=== PATIENT | female | born 1965 | race Caucasian/White ===

== ENCOUNTER 2019-02-24 11:09 | Emergency (ER) | payer BC, OTHER ==
[~2019-02-24] VITALS: Ht 170.1 cm; Wt 124.0 kg
[2019-02-24 12:21] LABS: HEMOGLOBIN 14.7 G/DL (11.5-16.0); WHITE BLOOD COUNT 7.6 10^3/uL (4.3-11.0)
[2019-02-24 12:22] LABS: MEAN PLATELET VOLUME 10.1 FL (7.4-10.4); RED CELL DISTRIBUTION WIDTH 14.2 % (10.0-14.5)
[2019-02-24 12:33] LABS: CARBON DIOXIDE 25 MMOL/L (21-32); CHLORIDE 98 MMOL/L (98-107); POTASSIUM 4.1 MMOL/L (3.6-5.0); SODIUM 138 MMOL/L (135-145)
[2019-02-24 12:34] LABS: ALANINE AMINOTRANSFERASE 8 U/L (0-55); ALBUMIN 4.3 GM/DL (3.2-4.5); ALKALINE PHOSPHATASE 101 U/L (40-136); BILIRUBIN,TOTAL 0.3 MG/DL (0.1-1.0); BUN/CREATININE RATIO 13; CALCIUM 9.6 MG/DL (8.5-10.1); CREATININE SERUM 0.77 MG/DL (0.60-1.30); GFR ESTIMATED > 60; GLUCOSE 109 MG/DL (70-105); TOTAL PROTEIN 7.8 GM/DL (6.4-8.2)
--- NOTE | 2019-02-24 12:39 | Diagnostic Imaging Report ---
INDICATION: Chest pain, lightheadedness. COMPARISON: None available. TECHNIQUE: Single frontal radiograph of the chest dated February 24, 2019. FINDINGS: The cardiac silhouette is within normal limits in size. No significant pulmonary vascular congestion. 0.8 cm nodular density overlying the right midlung. Otherwise, the lungs are clear. No pleural effusion. No pneumothorax. No acute osseous abnormality. IMPRESSION: No acute cardiopulmonary abnormality. 0.8 cm nodular density overlying the right midlung. Although this may simply relate to superposition of shadows, pulmonary nodule is not excluded. Comparison to prior radiographs is recommended. If no prior radiographs are available to demonstrate greater than 2 years of stability for this pulmonary nodule, then dedicated frontal and lateral radiographs of the chest would be recommended. Dictated by: Dictated on workstation # [id number]
[2019-02-24 14:12] LABS: CLARITY,URINE CLEAR; COLOR,URINE YELLOW; GLUCOSE, URINE (UA) NEGATIVE (NEGATIVE); KETONES,URINE NEGATIVE (NEGATIVE); PH,URINE 6.5 (5-9); PROTEIN,URINE NEGATIVE (NEGATIVE)
[2019-02-24 14:13] LABS: BILIRUBIN,URINE NEGATIVE (NEGATIVE); LEUKOCYTE ESTERASE ,URINE NEGATIVE (NEGATIVE); NITRITE,URINE NEGATIVE (NEGATIVE); SQUAMOUS EPITHELIAL CELL,UR RARE /HPF; UROBILINOGEN,URINE 0.2 MG/DL (NORMAL)
--- NOTE | 2019-02-24 16:24 | ED Chest Pain ---
General Chief Complaint: Chest Pain Stated Complaint: CHEST PAIN & LIGHTHEADED Exam Limitations: no limitations History of Present Illness Date Seen by Provider: Feb 24, 2019 Time Seen by Provider: 11:30 Initial Comments Patient is a 53-year-old female presents from work with left-sided scapular pain started while sitting. Pain is described as intense, aching lasting less than 30 seconds. Following which, patient reports feeling generally weak, malaise with nausea take. Denies chest pain shortness of breath, vomiting, arm or paresthesias. No abdominal pain. No other acute symptoms or complaints. Denies history of CAD. Cardiac neck risk factors include dyslipidemia and hypertension. Patient is a nonsmoker. Timing/Duration: 1/2 hour Severity/Quality: moderate Location: shoulder Radiation: no radiation Modifying Factors: improves with antacids Associated Symptoms: back pain, nausea/vomiting Allergies and Home Medications Patient Home Medication List Home Medication List Reviewed: Yes Review of Systems Review of Systems Constitutional: see HPI EENTM: See HPI Respiratory: See HPI Cardiovascular: See HPI Gastrointestinal: See HPI Genitourinary: See HPI Musculoskeletal: see HPI Skin: see HPI Psychiatric/Neurological: See HPI Endocrine: See HPI Past Cmhrvqa-Agndyk-Vfvvir Hx Past Med/Social Hx: Reviewed Nursing Past Med/Soc Hx Patient Social History Alcohol Use: Occasionally Uses Recreational Drug Use: No Smoking Status: Never a Smoker Recent Hopitalizations: No Physical Abuse: No Sexual Abuse: No Mistreated: No Fear: No Immunizations Up To Date Date of Influenza Vaccine: Mar 18, 2018 Seasonal Allergies Seasonal Allergies: No Past Medical History Surgeries: No Respiratory: No Cardiac: Yes Hypertension Neurological: No (concussion 3 yrs ago) Genitourinary: No Gastrointestinal: Yes Gastroesophageal Reflux Musculoskeletal: No Endocrine: No HEENT: No Cancer: No Psychosocial: Yes Anxiety, Depression Integumentary: No Blood Disorders: No Physical Exam Vital Signs Vital Signs - First Documented 02/24/19 11:11 O2 Delivery Room Air Capillary Refill : Less Than 3 Seconds Height, Weight, BMI Height: '" Weight: lbs. oz. kg; BMI Method: General Appearance: No Apparent Distress, WD/WN Focused Exam Sepsis Stage: Ruled Out Progress/Results/Core Measures Results/Orders Lab Results Laboratory Tests Test 02/24/19 11:14 02/24/19 13:12 02/24/19 14:55 Range/Units White Blood Count 7.6 4.3-11.0 10^3/uL Red Blood Count 5.26 4.35-5.85 10^6/uL Hemoglobin 14.7 11.5-16.0 G/DL Hematocrit 45 35-52 % Mean Corpuscular Volume 86 80-99 FL Mean Corpuscular Hemoglobin 28 25-34 PG Mean Corpuscular Hemoglobin Concent 33 32-36 G/DL Red Cell Distribution Width 14.2 10.0-14.5 % Platelet Count 360 130-400 10^3/uL Mean Platelet Volume 10.1 7.4-10.4 FL D-Dimer 0.41 0.00-0.49 UG/ML Sodium Level 138 135-145 MMOL/L Potassium Level 4.1 3.6-5.0 MMOL/L Chloride Level 98 98-107 MMOL/L Carbon Dioxide Level 25 21-32 MMOL/L Anion Gap 15 H 5-14 MMOL/L Blood Urea Nitrogen 10 7-18 MG/DL Creatinine 0.77 0.60-1.30 MG/DL Estimat Glomerular Filtration Rate > 60 BUN/Creatinine Ratio 13 Glucose Level 109 H 70-105 MG/DL Calcium Level 9.6 8.5-10.1 MG/DL Corrected Calcium 9.4 8.5-10.1 MG/DL Total Bilirubin 0.3 0.1-1.0 MG/DL Aspartate Amino Transf (AST/SGOT) 16 5-34 U/L Alanine Aminotransferase (ALT/SGPT) 8 0-55 U/L Alkaline Phosphatase 101 40-136 U/L Troponin I < 0.30 < 0.30 <0.30 NG/ML Total Protein 7.8 6.4-8.2 GM/DL Albumin 4.3 3.2-4.5 GM/DL Urine Color YELLOW Urine Clarity CLEAR Urine pH 6.5 5-9 Urine Specific [place] <1.005 1.016-1.022 Urine Protein NEGATIVE NEGATIVE Urine Glucose (UA) NEGATIVE NEGATIVE Urine Ketones NEGATIVE NEGATIVE Urine Nitrite NEGATIVE NEGATIVE Urine Bilirubin NEGATIVE NEGATIVE Urine Urobilinogen 0.2 NORMAL MG/DL Urine Leukocyte Esterase NEGATIVE NEGATIVE Urine RBC (Auto) NEGATIVE NEGATIVE Urine RBC NONE /HPF Urine WBC NONE /HPF Urine Squamous Epithelial Cells RARE /HPF Urine Renal Epithelial Cells /HPF Urine Crystals NONE /LPF Urine Bacteria NONE /HPF Urine Casts NONE /LPF Urine Mucus NEGATIVE /LPF Urine Culture Indicated NO My Orders Orders - AMBIKA ALFORD DO Cbc No Diff (02/24/19 12:11) Comprehensive Metabolic Panel (02/24/19 12:11) Troponin I (02/24/19 12:11) Ekg Tracing (02/24/19 12:11) Chest 1 View Ap/Pa Only (02/24/19 12:11) Troponin I (02/24/19 13:54) Fibrin Degradation Products (02/24/19 13:54) Ua Culture If Indicated (02/24/19 13:54) Vital Signs/I&O 02/24/19 11:11 O2 Delivery Room Air Departure Communication (Admissions) EKG, lab and imaging studies reviewed. No recurrence of chest pain or back pain while in the emergency department. No diagnosis made. Recommend watchful waiting, supportive care with close PCP follow-up. Return precautions reviewed. Impression Primary Impression: Chest pain Disposition: HOME, SELF-CARE Condition: Improved Departure-Patient Inst. Referrals: YESSY MARTINEZ MD (PCP) Primary Care Physician Patient Instructions: Chest Pain (DC) Add. Discharge Instructions: You were evaluated in the emergency department for left shoulder pain and weakness. EKG lab and imaging studies were performed and are nondiagnostic. Cause of your symptoms has not been determined. Please go home and rest, increase fluids and follow-up with your PCP in 3-4 days for reevaluation. Return to ED if new or worsening symptoms. All discharge instructions reviewed with patient and/or family. Voiced understanding. AMBIKA ALFORD DO Feb 24, 2019 16:24
[2019-02-24 16:34] VITALS: BP 156/60
== END 2019-02-24 16:34 | disposition home or self-care (01) ==
LOC: ER FS 11:11
DX: R07.9 Chest pain, unspecified (principal); I10 Essential (primary) hypertension; K21.9 Gastro-esophageal reflux disease without esophagitis; F41.9 Anxiety disorder, unspecified; F32.9 Major depressive disorder, single episode, unspecified
CPT/HCPCS: 36415; 71045; 80053; 81000; 84484; 85027; 85379; 93005

== ENCOUNTER 2021-04-18 05:31 | Outpatient (CLI) | payer BC ==
[~2021-04-18] VITALS: Ht 170.2 cm; Wt 124.1 kg
[2021-04-19] MEDS ORDERED: LISI2.5T13 PO (08:38)
[2021-04-19] MEDS ORDERED: DULO60CA59 PO (08:38)
[2021-04-19] MEDS ORDERED: OMEP20TA33 PO (08:38)
== END 2021-04-19 08:41 | disposition home or self-care (01) ==
LOC: PREOP 05:31
PROVIDERS: ATTEND Podiatrist Foot & Ankle Surgery
DX: Z01.818 Encounter for other preprocedural examination (principal)

== ENCOUNTER → 2021-04-22 | Outpatient (CLI) | payer BC ==
[~2021-04-22] MED LIST: ACHD5005 PO; CEPH500C PO; DULO60CA59 PO; LISI2.5T13 PO; OMEP20TA33 PO
== END ==
LOC: LAB FS 09:59
PROVIDERS: ATTEND Podiatrist Foot & Ankle Surgery
DX: Z01.812 Encounter for preprocedural laboratory examination (principal); M20.41 Other hammer toe(s) (acquired), right foot; M89.371 Hypertrophy of bone, right ankle and foot; Z20.822 Contact with and (suspected) exposure to COVID-19
CPT/HCPCS: 87635

== ENCOUNTER 2021-04-25 06:07 | Day surgery (SDC) | payer BC ==
[2021-04-25] VITALS (10 sets, daily range): BP systolic 127–160; BP diastolic 66–92
[~2021-04-25] VITALS: Ht 170 cm; Wt 124.1 kg
[~2021-04-25 06:07] MED LIST changes: -ACHD5005 PO; -CEPH500C PO
[2021-04-25] MEDS ORDERED: ceFAZolin INJECTION 1,000 MG in WATER (STERILE) FOR INJECTION 10 ML IV ONE (07:00)
[2021-04-25] MEDS ORDERED: LACTATED RINGERS 1,000 ML IV PRN (07:00)
[2021-04-25] MEDS ORDERED: LIDOCAINE 1% INJ 20 ML 20 ML VIAL ONE (07:15)
[2021-04-25] MEDS ORDERED: BUPIVACAINE 0.5% 30 ML (SENSORCAINE) VIAL ONE (07:15)
[2021-04-25] MEDS ORDERED: SEVOFLURANE (ULTANE) 15 ML INHAL SOLN ONE ×3 (07:35→10:15)
[2021-04-25] MEDS ORDERED: LIDOCAINE PF 2% 5 ML (XYLOCAINE) VIAL ONE (07:35)
[2021-04-25] MEDS ORDERED: fentaNYL INJ 100 MCG/2 ML AMP ONE (07:35)
[2021-04-25] MEDS ORDERED: proPOfol 200 MG/20 ML (DIPRIVAN) VIAL IV ONE (07:35)
[2021-04-25] MEDS ORDERED: ONDANSETRON 4 MG/2 ML (SDV) Z0FRAN ONE (07:35)
[2021-04-25] MEDS ORDERED: MIDAZOLAM 2 MG/2 ML (VERSED) VIAL ONE (07:36)
--- NOTE | 2021-04-25 07:40 | Progress Note-Pre Operative ---
Pre-Operative Progress Note H&P Reviewed The H&P was reviewed, patient examined and no changes noted. Date Seen by Provider: Apr 25, 2021 Time Seen by Provider: 07:40 Date H&P Reviewed: Apr 25, 2021 Time H&P Reviewed: 07:40 Pre-Operative Diagnosis: Hypertrophic 2nd metatarsal, Hammertoes 2,3,4,5 right foot PHILLIP UNGER DPM Apr 25, 2021 07:40
--- NOTE | 2021-04-25 09:59 | Progress Note-Post Operative ---
Post-Operative Progess Note Surgeon (s)/Stained Glass Artist (s) Surgeon PHILLIP UNGER DPM Stained Glass Artist: none Pre-Operative Diagnosis Hypertrophic 2nd metatarsal, Hammertoes 2,3,4,5 right foot Post-Operative Diagnosis same Procedure & Operative Findings Date of Procedure 04/25/21 Procedure Performed/Findings 2nd metatarsal osteotomy, reduction of hammertoes 2, 4, 5, flexor tendon release 3rd, right foot Anesthesia Type general Estimated Blood Loss Estimated blood loss (mL): minimal Specimens/Packing Specimens Removed none PHILLIP UNGER DPM Apr 25, 2021 09:59
[2021-04-25] MEDS ORDERED: HYDROcodone/APAP 5 MG/325 MG (LORTAB) TAB PO PRN (10:00)
[2021-04-25] MEDS ORDERED: LACTATED RINGERS 1,000 ML IV SCH (10:00)
[2021-04-25] MEDS ORDERED: CEPH500C PO (10:01)
[2021-04-25] MEDS ORDERED: ACHD5005 PO (10:01)
[2021-04-25] MEDS ORDERED: KETOROLAC 30 MG/ML VIAL ONE (10:12)
[2021-04-25] MEDS ORDERED: fentaNYL INJ 100 MCG/2 ML AMP IVP ONE (10:45)
--- NOTE | 2021-04-25 10:53 | Anesthesia-General Post-Op ---
General Patient Condition Mental Status/LOC: Same as Preop Cardiovascular: Satisfactory Nausea/Vomiting: Absent Respiratory: Satisfactory Pain: Controlled Complications: Absent Post Op Complications Complications None Follow Up Care/Instructions Patient Instructions None needed. Anesthesia/Patient Condition Patient Condition Patient is doing well, no complaints, stable vital signs, no apparent adverse anesthesia problems. No complications reported per nursing. NYASIA SIMONS CRNA Apr 25, 2021 10:53
--- NOTE | 2021-04-25 11:28 | Diagnostic Imaging Report ---
INDICATION: POST OP. TECHNIQUE: Two views of the right foot. CORRELATION STUDY: None. FINDINGS: Surgical changes of the 2nd through 5th toes with osteotomy changes. Additional screw over the distal 2nd metatarsal. External fixation pins through the 2nd, 3rd, and 4th phalanges are present. Visualized alignment appears to be near-anatomic. Soft tissue swelling is present. IMPRESSION: Surgical changes of the 2nd through 5th phalanges with external fixation pins of the 2nd through 4th digits. Dictated by: Dictated on workstation # [id number]
--- NOTE | 2021-04-25 12:46 | OPERATIVE REPORT ---
DATE OF SERVICE: 04/25/2021 SURGEON: Martha Unger DPM. PREOPERATIVE DIAGNOSES: 1. Hypertrophic second metatarsal head, right foot. 2. Hammer digit syndrome second, third, fourth and fifth digits, right foot. POSTOPERATIVE DIAGNOSES: 1. Hypertrophic second metatarsal head, right foot. 2. Hammer digit syndrome second, third, fourth and fifth digits, right foot. PROCEDURES: 1. Second metatarsal osteotomy, right foot. 2. Arthrodesis to the right second and fourth digits. 3. Arthroplasty, right fifth toe. 4. Flexor tendon release, right third digit. WOUND CLASS: Clean. ANESTHESIA: General. HEMOSTASIS: Pneumatic thigh tourniquet at 300 mmHg. INDICATIONS: This 55-year-old female presents complaining of painful hammertoes, right foot. Conservative therapy is met with unsatisfactory results and the patient is agreeable to surgical intervention after risks and complications were discussed at length. No guarantees were explained to the patient and she is willing to proceed. DESCRIPTION OF PROCEDURE: The patient was brought back to the operating table, placed in secure supine position. A general anesthetic was then induced. Appropriate timeout was performed. Pneumatic thigh tourniquet was placed on the right lower extremity over several layers of padding. The right foot was anesthetized utilizing 10 mL of 1:1 mixture of 1% Xylocaine, 0.5% Marcaine injected in a local infusion to the second, third, fourth and fifth rays and toes. The right foot was prepped and draped in normal sterile manner. The right foot was then elevated, allowed to exsanguinate after which the tourniquet was inflated to 300 mmHg. Attention was then directed to the dorsal aspect of the right second ray where a 4 cm longitudinal linear incision was created starting at the surgical neck of the second metatarsal extending to the distal interphalangeal joint. The incision was deepened in the same plane with great care to identify and retract all vital neurovascular structures. Only necessary blood vessels were cauterized as encountered. The incision was deepened down to the extensor tendon where a Z-slide lengthening was performed. The extensor tendon was reflected, and the extensor hung released to the metatarsophalangeal joint. A dorsal capsulorrhaphy was performed as well as a release to the medial collateral ligament. This allowed the digit to come down in more rectus alignment. Attention was then directed to the head of the second metatarsal where a Bonnie type osteotomy was performed. The capital fragment was translocated proximally and a slightly medial orientation and was fixated in its new position utilizing a 2.0 snap-off screw of 12 mm length. Excellent bony apposition and fixation was appreciated. Utilizing a rongeur, the excess portion of the dorsal second metatarsal head was reduced, followed by a power bur. Attention was then directed to the proximal interphalangeal joint of the right second toe where the collateral ligaments were released. The head was shaped into a peg utilizing a power sagittal saw and power bur, a hole was created to the middle phalanx at the base with a power bur for the peg-in-hole type arthrodesis. This was fixated in its corrected position utilizing a 0.054 K-wire. The K-wire was sticking out of the end of the toe was cut and a protective ball placed over the end of the wire. Attention was then directed to the plantar aspect of the flexible contracture of the right third toe. An #11 blade was utilized to create a stab incision to the plantar aspect of the proximal interphalangeal joint of the right third toe where the flexor tendon was palpated and released. This allowed for more rectus alignment of the digit. A 0.054 smooth K-wire was driven down the end of the toe through the distal middle and proximal phalanx to hold the digit in rectus alignment. The excess K-wire was cut, and a protective ball placed over the end of the wire. The attention was then directed to the right fourth toe where an adductor varus contracture was noted. A stab incision was created at the inferior aspect of the proximal interphalangeal joint and the flexor tendon was released. Next, two semielliptical incisions were created at the distal medial to proximal lateral orientation. The circumscribed skin was removed in toto. The incision was deepened down to the extensor tendon where a transverse tenotomy was performed overlying the proximal interphalangeal joint. The medial collateral ligaments were released. Next, the hypertrophic head of the proximal phalanx was resected utilizing a power sagittal saw and power bur was utilized to resect the articular cartilage of the middle phalanx for an end-to-end arthrodesis. The wound was flushed with copious amounts of sterile normal saline as was the second and third digits incisions. K-wire was then driven down the right fourth digit holding the arthrodesis in rectus alignment and a protective ball was placed over the end of the wire. Attention was then directed to the right fifth toe where digit was dorsally and medially oriented and overlapping the fourth digit. A V-Y skin plasty was performed to the proximal medial aspect of the proximal phalanx metatarsal area. The incision was extended dorsally linearly overlying the proximal interphalangeal joint. The incision was deepened down to the extensor tendons where a Z slide lengthening was performed. The medial and lateral collateral ligaments of the proximal interphalangeal joint were identified and released. The hypertrophic head of the proximal phalanx was identified and resected utilizing a power sagittal saw. The metatarsophalangeal joint was identified and a dorsal capsulorrhaphy was performed. This allowed the proximal phalanx to come down into a more rectus alignment. The wound was flushed with copious amounts of normal saline. The extensor tendon was approximated and the extended length and position with a 4-0 Vicryl, deep closure and extensor tendon repair was performed to the second and fourth ray with a 3-0 Vicryl. Superficial closure was performed to the subcutaneous tissue with 4-0 Vicryl to the dorsal incisions of the second, fourth and fifth rays. Skin closure was performed with 4-0 Prolene in a horizontal mattress type stitch to the dorsal incisions as well with occasional single interrupted type stitch for the V-Y plasty of the right fifth digit. The tourniquet was released noting appropriate cap refill time to all digits of the right foot. Postoperative injection consisted of 10 mL of 0.5% Marcaine injected in a local infusion to the surgical site. Postoperative dressing consisted of Betadine soaked Adaptic, sterile 4 x 4, sterile Kerlix all secured with a Coban wrap. The patient tolerated the anesthesia and procedure well, was transported from the operating room to the recovery room with vital signs stable and vascular status intact to all digits of the right foot. She is to follow up in my office in 10 days' period of time or sooner if necessary. She is to keep the dressing dry, clean and intact. She was given a prescription for Keflex as well as Vicodin. She is to be partial weightbearing with heel contact only on the right lower extremity with crutches or a walker. Job ID: [id number] DocumentID: [id number] Dictated Date: 04/25/2021 10:15:41 Technology Support Analyst Date: 04/25/2021 12:44:47 Dictated By: MARTHA UNGER DPM
--- NOTE | 2021-04-25 13:23 | Physical Therapy Ortho Eval ---
PT Orthopedic Evaluation Type of Surgery Prior Level of Function Current Living Status: Spouse Locomotion (Upon Admit): Independent Established Durable Medical Eq: Front Wheeled Walker, Crutches Subjective Subjective Patient reports 3/10 pain currently in right foot/toes. Entry Into Home: Stairs Without Railing Steps Into Home: 2 Steps Accessories: No Railing Motor Control Motor Control: Motor Control WNL ROM ROM: WFL, except focal deficit Strength Strength: WFL Transfer SCALE: Activities may be completed with or without assistive devices. 0-Mbpiuttyvh-pnzgpic completes the activity by him/herself with no assistance from a helper. 5-Set-up or Clean-up Assistance-helper sets up or cleans up; patient completes activity. [place] assists only prior to or following the activity. 4-Supervision or Touching Assistance-helper provides verbal cues and/or touching/steadying and/or contact guard assistance as patient completes activity. Assistance may be provided throughout the activity or intermittently. 3-Partial/Moderate Assistance-helper does LESS THAN HALF the effort. Keene lifts, holds or supports trunk or limbs, but provides less than half the effort. 2-Substantial/Maximal Assistance-helper does MORE THAN HALF the effort. Keene lifts or holds trunk or limbs and provides more than half the effort. 8-Bixdrekpe-cjdgpn does ALL the effort. Patient does none of the effort to complete the activity. Or, the assistance of 2 or more helpers is required for the patient to complete the activity. If activity was not attempted, code reason: 7-Patient Refused. 9-Not Applicable-not attempted and the patient did not perform the activity before the current illness, exacerbation or injury. 10-Not Attempted due to Environmental Limitations-(lack of equipment, weather restraints, etc.). 88-Not Attempted due to Medical Conditions or Safety Concerns. Transfers (B, C, W/C) (QC): 5 Gait Right Lower Extremity: Right Weight Bearing Status RLE: Partial Weight Bearing Left Lower Extremity: Left Weight Bearing Status LLE: Full Weight Bearing Distance (QC): 4=463-54 ft Distance: 100 Assessment/Goals Goal Time Frame: 1 Visit Plan Treatment Plan: Discharge, Education Time Time In: 1126 Time Out: 1146 Total Billed Treatment Time: 20 Billed Treatment Time Visit, YESSY [place] PT Apr 25, 2021 13:23
== END 2021-04-25 12:00 ==
LOC: SDC 06:07
PROVIDERS: ATTEND Podiatrist Foot & Ankle Surgery
DX: M89.371 Hypertrophy of bone, right ankle and foot (principal); M20.41 Other hammer toe(s) (acquired), right foot; I10 Essential (primary) hypertension; K21.9 Gastro-esophageal reflux disease without esophagitis; F41.9 Anxiety disorder, unspecified; F32.A Depression, unspecified; Z79.899 Other long term (current) drug therapy; Z80.9 Family history of malignant neoplasm, unspecified
CPT/HCPCS: 28232; 28285 ×3; 28308; 73620; 87081; 97161; C1713

== ENCOUNTER 2021-09-13 22:20 | Emergency (ER) | payer BC ==
[~2021-09-13] VITALS: Ht 170.1 cm; Wt 125.5 kg
[~2021-09-13 22:20] MED LIST changes: +ACHD5005 PO; +CEPH500C PO
[2021-09-13] MEDS ORDERED: PROCHLORPERAZINE 10 MG/2ML INJ (COMPAZINE) IV STA (22:37)
[2021-09-13] MEDS ORDERED: diphenhydrAMINE 50 MG/ML INJ (BENADRYL) IVP STA (22:37)
[2021-09-13] MEDS ORDERED: KETOROLAC 30 MG/ML VIAL IVP STA (22:37)
[2021-09-13] MEDS ORDERED: NS IV 1000 ML 1,000 ML IV STA (22:37)
[2021-09-13] MEDS ORDERED: hydrALAZINE (APESOLINE) 20 MG/ML VIAL IV STA (22:41)
--- NOTE | 2021-09-13 22:41 | ED Headache ---
General Chief Complaint: Head/Cervical Problems Stated Complaint: HEADACHE Nursing Triage Note: Patient states that she has had a headache for the last 8 days. Patient reports having a history of migraines but this one isn't where she typically has them. She also reports that she has never had one last this long or be this severe. Patient states the headache starts on the right side of the base of her neck and radiates to her right ear. She describes the pain changing in intensity at intermittent times and different places. Patient took 2 Excedrin Migraines at 17:00, 1 Simuptriptan at 19:00 and 1 hydrocodone at approximately 2130. Patient report very little relief. Patient does have a history of HTN. Source: patient History of Present Illness Date Seen by Provider: Sep 13, 2021 Time Seen by Provider: 22:21 Initial Comments 56-year-old female presenting with complaints of right-sided headache and neck pain for 8 days. She states that she does have a history of migraine headaches ever since she had a concussion several years ago. However typically her migraine headaches are on the left side of her head and this headache is on the right side. She denies any new or recent head trauma. She does have a history of high blood pressure and takes lisinopril for that. Her blood pressure was elevated today and she was directed by the nurse at Dr. Martinez's office to take an extra dose of her lisinopril. She only takes 2.5 mg so he had her increase to 5 mg of lisinopril. She states her headache has been getting worse over the last 8 days. Initially she could manage it with ibuprofen but that has gotten to the point that ibuprofen, Excedrin Migraine, Imitrex and hydrocodone have still not controlled her headache. She has light sensitivity that makes the headache worse. She has had nausea but no vomiting. She has not actually physically gone to see Dr. Martinez about headache and symptoms. Severity/Quality: severe Location: other (right side of head and neck) Prior Headaches/Recent Trauma: chronic headaches (but usually those are on the left side of her head) Modifying Factors: worse with exposure to light Associated Symptoms: No confusion, No fatigue, No facial pain, No fever/chills, No flushing, No loss of consciousness; nausea/vomiting (nausea when pain is severe but no emesis); No nasal congestion, No nasal drainage, No numbness in legs/feet, No rash, No seizures, No sinus infection, No stiff neck, No vision changes, No weakness Allergies and Home Medications Allergies Coded Allergies: quetiapine (Verified Allergy, Unknown, Rash, 04/25/21) Patient Home Medication List Home Medication List Reviewed: Yes Cephalexin (Cephalexin) 500 Mg Capsule, 1 CAP PO TID Prescribed by: PHILLIP UNGER on 04/25/21 1001 Duloxetine HCl (Duloxetine HCl) Unknown Strength Capsule., 1 TAB PO BID, (Reported) Entered as Reported by: MAE VENTURA on 04/19/21 0838 Hydrocodone/Acetaminophen (Hydrocodone-Acetamin 5-325 mg) 1 Each Tablet, 1 TAB PO Q4H PRN for PAIN-MODERATE (5-7) Prescribed by: PHILLIP UNGER on 04/25/21 1003 Lisinopril (Lisinopril) 2.5 Mg Tablet, 2.5 MG PO DAILY, (Reported) Entered as Reported by: MAE VENTURA on 04/19/21 0838 Omeprazole Magnesium (Prilosec Otc) 20 Mg Tablet.dr, 20 MG PO DAILY, (Reported) Entered as Reported by: MAE VENTURA on 04/19/21 0838 Review of Systems Review of Systems Constitutional: No chills, No diaphoresis, No fever Eyes: Denies Blindness, Denies Blurred Vision, Denies Drainage; Photophobia; Denies Vision Changes Ears, Nose, Mouth, Throat: see HPI (pain behind right ear with tenderness over mastoid); denies ear pain, denies ear discharge, denies nose pain, denies nose discharge, denies epistaxis Respiratory: no symptoms reported Cardiovascular: no symptoms reported Gastrointestinal: see HPI Genitourinary: No dysuria, No frequency Musculoskeletal: No joint swelling; neck pain (right sided neck pain and pain over right mastoid) Skin: No rash Psychiatric/Neurological: See HPI, Anxiety, Headache; Denies Numbness, Denies Paresthesia, Denies Seizure, Denies Tingling, Denies Weakness Past Uhtsgza-Xsjmgf-Gyshqq Hx Patient Social History Tobacco Use?: No Substance use?: No Alcohol Use?: No Pt feels they are or have been: No Immunizations Up To Date First/Initial COVID19 Vaccinat: august 2020 Second COVID19 Vaccination [place]: september 2020 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 Seasonal Allergies Seasonal Allergies: No Past Medical History Surgery/Hospitalization HX: HTN, Depression, Concussion hx with chronic Migraines, Anxiety, Obesity Surgeries: No Respiratory: No Cardiac: Yes Hypertension Neurological: No Genitourinary: No Gastrointestinal: Yes Gastroesophageal Reflux Musculoskeletal: No (wilfredo ) Endocrine: No HEENT: No Cancer: No Psychosocial: Yes Anxiety, Depression Integumentary: No Blood Disorders: No Physical Exam Vital Signs Vital Signs - First Documented 09/13/21 22:23 Temp 36.5 Pulse 84 Resp 18 B/P (MAP) 190/88 (122) Pulse Ox 94 O2 Delivery Room Air Capillary Refill : Less Than 3 Seconds Height, Weight, BMI Height: '" Weight: lbs. oz. kg; 43.00 BMI Method: General Appearance: mild distress, obese HEENT: PERRL/EOMI, TMs normal, pharynx normal, photophobia, other (Negative bustillo sign, negative raccoon sign, negative CSF otorrhea or rhinorrhea. She has tenderness to palpation over the right mastoid.) Neck: full range of motion, supple, tender lateral (Right side of neck up to the mastoid and scalp area is tender to palpation) Cardiovascular: normal peripheral pulses, regular rate, rhythm Respiratory: chest non-tender, lungs clear, normal breath sounds, no respiratory distress, no accessory muscle use Gastrointestinal: normal bowel sounds, non tender, soft, no pulsatile mass Back: no CVA tenderness Extremities: normal range of motion, non-tender, no calf tenderness, normal capillary refill Psychiatric: alert, oriented x 3 Crainal Nerves: normal hearing, normal speech, PERRL Coordination/Gait: normal gait Motor/Sensory: no motor deficit, no sensory deficit Skin: normal color, warm/dry Progress/Results/Core Measures Results/Orders Lab Results Laboratory Tests Test 09/13/21 22:38 09/13/21 22:50 Range/Units White Blood Count 7.7 4.3-11.0 10^3/uL Red Blood Count 4.96 3.80-5.11 10^6/uL Hemoglobin 13.9 11.5-16.0 g/dL Hematocrit 41 35-52 % Mean Corpuscular Volume 83 80-99 fL Mean Corpuscular Hemoglobin 28 25-34 pg Mean Corpuscular Hemoglobin Concent 34 32-36 g/dL Red Cell Distribution Width 13.9 10.0-14.5 % Platelet Count 365 130-400 10^3/uL Mean Platelet Volume 9.5 9.0-12.2 fL Immature Granulocyte % (Auto) 0 % Neutrophils (%) (Auto) 59 42-75 % Lymphocytes (%) (Auto) 31 12-44 % Monocytes (%) (Auto) 6 0-12 % Eosinophils (%) (Auto) 3 0-10 % Basophils (%) (Auto) 1 0-10 % Neutrophils # (Auto) 4.5 1.8-7.8 10^3/uL Lymphocytes # (Auto) 2.4 1.0-4.0 10^3/uL Monocytes # (Auto) 0.5 0.0-1.0 10^3/uL Eosinophils # (Auto) 0.2 0.0-0.3 10^3/uL Basophils # (Auto) 0.0 0.0-0.1 10^3/uL Immature Granulocyte # (Auto) 0.0 0.0-0.1 10^3/uL Prothrombin Time 12.3 12.2-14.7 SEC INR Comment 0.9 0.8-1.4 Activated Partial Thromboplast Time 32 24-35 SEC Sodium Level 141 135-145 MMOL/L Potassium Level 4.3 3.6-5.0 MMOL/L Chloride Level 103 98-107 MMOL/L Carbon Dioxide Level 25 21-32 MMOL/L Anion Gap 13 5-14 MMOL/L Blood Urea Nitrogen 10 7-18 MG/DL Creatinine 0.69 0.60-1.30 MG/DL Estimat Glomerular Filtration Rate 101 BUN/Creatinine Ratio 14 Glucose Level 119 H 70-105 MG/DL Calcium Level 9.5 8.5-10.1 MG/DL Corrected Calcium 9.3 8.5-10.1 MG/DL Magnesium Level 2.2 1.6-2.4 MG/DL Total Bilirubin 0.3 0.1-1.0 MG/DL Aspartate Amino Transf (AST/SGOT) 12 5-34 U/L Alanine Aminotransferase (ALT/SGPT) 5 0-55 U/L Alkaline Phosphatase 123 40-136 U/L Total Protein 7.3 6.4-8.2 GM/DL Albumin 4.2 3.2-4.5 GM/DL Urine Color YELLOW Urine Clarity CLEAR Urine pH 7.0 5-9 Urine Specific [place] <=1.005 1.016-1.022 Urine Protein NEGATIVE NEGATIVE Urine Glucose (UA) NEGATIVE NEGATIVE Urine Ketones NEGATIVE NEGATIVE Urine Nitrite NEGATIVE NEGATIVE Urine Bilirubin NEGATIVE NEGATIVE Urine Urobilinogen 0.2 < = 1.0 MG/DL Urine Leukocyte Esterase NEGATIVE NEGATIVE Urine RBC (Auto) NEGATIVE NEGATIVE Urine RBC NONE /HPF Urine WBC RARE /HPF Urine Squamous Epithelial Cells RARE /HPF Urine Crystals NONE /LPF Urine Bacteria TRACE /HPF Urine Casts NONE /LPF Urine Mucus NEGATIVE /LPF Urine Culture Indicated NO My Orders Orders - MIRANDA GOMEZ MD Ct Head/Cervical Spine Wo (09/13/21 22:37) Cbc With Automated Diff (09/13/21 22:37) Magnesium (09/13/21 22:37) Comprehensive Metabolic Panel (09/13/21 22:37) Protime With Inr (09/13/21 22:37) Partial Thromboplastin Time (09/13/21 22:37) Monitor-Rhythm Ecg Trace Only (09/13/21 22:37) Ed Iv/Invasive Line Start (09/13/21 22:37) Ua Culture If Indicated (09/13/21 22:37) Ns Iv 1000 Ml (Sodium Chloride 0.9%) (09/13/21 22:37) Ketorolac Injection (Toradol Injection) (09/13/21 22:37) Diphenhydramine Injection (Benadryl Inje (09/13/21 22:37) Prochlorperazine Injection (Compazine In (09/13/21 22:37) Hydralazine Injection (Apresoline Inject (09/13/21 22:41) Vital Signs/I&O 09/13/21 22:23 Temp 36.5 Pulse 84 Resp 18 B/P (MAP) 190/88 (122) Pulse Ox 94 O2 Delivery Room Air Blood Pressure Mean: 122 Progress Progress Note #1: Progress Note Obtain basic labs, UA, CT scan of head/cervical spine. Order IVF 1 L NS for hydration. Migraine Cocktail of Toradol 30 mg, Compazine 10 mg IV, Benadryl 25 mg IV. For her hypertension give Hydralazine 10 mg IV. Progress Note #2: Time: 23:08 Progress Note CBC without acute significant abnormality. UA clear and shows she is well hydrated with low specific gravity. Coags normal. CT head read out as having assymetry of lateral ventricles with right greater than left, but no mass, hemorrhage. 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 She has spondylosis but no cervical fracture or acute process in cervical spine. No signs of acute sinus disease on scan. 2310 Dr. Thierry Davidson from [facility] called to let me know that the patient had no acute findings and no hemorrhage. Progress Note #3: Time: 23:17 Progress Note Chemistry without acute significant abnormality but does have mild elevation of glucose to 119. BP down to 127/88 with treatment here in the ED. Will update pt and spouse and see how her symptoms are after treatment. Progress Note #4: Time: 23:33 Progress Note Headache down to 2/10 for pain level. Pt feeling much better and more relaxed. Reassured that the scan does not show bleeding or mass or sinusitis. Will discharge to home and encourage fluids and rest. If headache continues or worsens she may need MRI or Neuro eval. Diagnostic Imaging Diagonstic Imaging: CT Plain Films/CT/US/NM/MRI: c-spine, head Comments NAME: AMY MARTINES [facility] REC#: [id number] PT STATUS: REG ER : 1965 PHYSICIAN: MIRANDA GOMEZ MD ADMIT DATE: 09/13/21/ER FS Signed Date of Exam:09/13/21 CT HEAD/CERVICAL SPINE WO PROCEDURE: CT head and CT cervical spine without contrast. TECHNIQUE: Multiple contiguous axial images were obtained through the brain and cervical spine without the use of intravenous contrast. Sagittal and coronal reformations through the cervical spine were then performed. Auto Exposure Controls were utilized during the CT exam to meet ALARA standards for radiation dose reduction. INDICATION: Right-sided head and neck pain. Migraines. COMPARISON: None. FINDINGS: CT head: No large acute territorial ischemia, mass, or hemorrhage. No midline shift or mass effect. There is asymmetric prominence of the right ventricle relative to the left, likely representing a congenital variant. No hydrocephalus. The cortical sulci and basilar cisterns are patent and unremarkable. There is flattening of the pituitary. The calvarium is intact. The visualized paranasal sinuses are clear. CT cervical spine: No acute fracture or dislocation is seen in the cervical spine. No focal osseous lesions. There is congenital nonunion of the posterior arch of C1. Vertebral body heights are well-maintained. The craniocervical junction is well-maintained. Mild degenerative changes are seen in the cervical spine with disc osteophyte complexes and uncovertebral arthropathy. Soft tissues of the neck are unremarkable. The included lung apices are clear. IMPRESSION: 1. No hemorrhage or focal intra-axial mass. No CT evidence of large acute territorial ischemia. 2. No acute fracture or dislocation in the cervical spine. 3. Asymmetric prominence of the right ventricle relative to the left, likely congenital. No acute hydrocephalus. Dictated by: Dictated on workstation # [id number] Dict: 09/13/212255 Trans: 09/13/212301 [facility] [id number] Interpreted by: BRUNILDA RAHMAN DO Electronically signed by: BRUNILDA RAHMAN DO 09/13/212301 Reviewed: Reviewed [place] Hawk Study, Reviewed by Me, Discussed w/Radiologist ([facility] Radiologist, Dr. Thierry Davidson) Departure Impression Primary Impression: Right-sided headache Additional Impression: Elevated blood pressure reading with diagnosis of hypertension Disposition: HOME, SELF-CARE Condition: Improved Departure-Patient Inst. Decision time for Depature: 23:38 Referrals: YESSY MARTINEZ MD (PCP/Family) Primary Care Physician Patient Instructions: High Blood Pressure ED, Headache, Adult ED, How to Keep Track of Your Headaches, Home Headache Remedies Add. Discharge Instructions: Follow up with Dr. Martinez about your headache. If you continue to have headaches or worsening symptoms then he may need to have you get an MRI or refer you to Neurology specialist. Rest in a cool dark room. Stay well hydrated and try to get plenty of rest. All discharge instructions reviewed with patient and/or family. Voiced understanding. Work/School Note: Work Release Form Date Seen in the Emergency Department: Sep 13, 2021 Return to Work: Sep 15, 2021 Restrictions: No Restrictions MIRANDA GOMEZ MD Sep 13, 2021 22:41
[2021-09-13 22:45] LABS: BASOPHILS % (AUTO) 1 % (0-10); EOSINOPHILS # (AUTO) 0.2 10^3/uL (0.0-0.3); EOSINOPHILS % (AUTO) 3 % (0-10); HEMATOCRIT 41 % (35-52); HEMOGLOBIN 13.9 g/dL (11.5-16.0); LYMPHOCYTES # (AUTO) 2.4 10^3/uL (1.0-4.0); LYMPHOCYTES % (AUTO) 31 % (12-44); MEAN CORPUSCULAR HEMOGLOBIN 28 pg (25-34); MEAN CORPUSCULAR HGB CONC 34 g/dL (32-36); MEAN CORPUSCULAR VOLUME 83 fL (80-99); MEAN PLATELET VOLUME 9.5 fL (9.0-12.2); MONOCYTES # (AUTO) 0.5 10^3/uL (0.0-1.0); MONOCYTES % (AUTO) 6 % (0-12); NEUTROPHILS # (AUTO) 4.5 10^3/uL (1.8-7.8); NEUTROPHILS % (AUTO) 59 % (42-75); PLATELET COUNT 365 10^3/uL (130-400); WHITE BLOOD COUNT 7.7 10^3/uL (4.3-11.0)
[2021-09-13 22:54] LABS: BILIRUBIN,URINE NEGATIVE (NEGATIVE); CLARITY,URINE CLEAR; COLOR,URINE YELLOW; GLUCOSE, URINE (UA) NEGATIVE (NEGATIVE); KETONES,URINE NEGATIVE (NEGATIVE); LEUKOCYTE ESTERASE ,URINE NEGATIVE (NEGATIVE); NITRITE,URINE NEGATIVE (NEGATIVE); PROTEIN,URINE NEGATIVE (NEGATIVE)
[2021-09-13 22:55] LABS: INR 0.9 (0.8-1.4); PROTHROMBIN TIME PATIENT 12.3 SEC (12.2-14.7)
[2021-09-13 22:59] LABS: BACTERIA,URINE TRACE /HPF; SQUAMOUS EPITHELIAL CELL,UR RARE /HPF; WBC,URINE RARE /HPF
--- NOTE | 2021-09-13 23:04 | Diagnostic Imaging Report ---
PROCEDURE: CT head and CT cervical spine without contrast. TECHNIQUE: Multiple contiguous axial images were obtained through the brain and cervical spine without the use of intravenous contrast. Sagittal and coronal reformations through the cervical spine were then performed. Auto Exposure Controls were utilized during the CT exam to meet ALARA standards for radiation dose reduction. INDICATION: Right-sided head and neck pain. Migraines. COMPARISON: None. FINDINGS: CT head: No large acute territorial ischemia, mass, or hemorrhage. No midline shift or mass effect. There is asymmetric prominence of the right ventricle relative to the left, likely representing a congenital variant. No hydrocephalus. The cortical sulci and basilar cisterns are patent and unremarkable. There is flattening of the pituitary. The calvarium is intact. The visualized paranasal sinuses are clear. CT cervical spine: No acute fracture or dislocation is seen in the cervical spine. No focal osseous lesions. There is congenital nonunion of the posterior arch of C1. Vertebral body heights are well-maintained. The craniocervical junction is well-maintained. Mild degenerative changes are seen in the cervical spine with disc osteophyte complexes and uncovertebral arthropathy. Soft tissues of the neck are unremarkable. The included lung apices are clear. IMPRESSION: 1. No hemorrhage or focal intra-axial mass. No CT evidence of large acute territorial ischemia. 2. No acute fracture or dislocation in the cervical spine. 3. Asymmetric prominence of the right ventricle relative to the left, likely congenital. No acute hydrocephalus. Dictated by: Dictated on workstation # [id number]
[2021-09-13 23:10] LABS: POTASSIUM 4.3 MMOL/L (3.6-5.0)
[2021-09-13 23:11] LABS: ALBUMIN 4.2 GM/DL (3.2-4.5); BILIRUBIN,TOTAL 0.3 MG/DL (0.1-1.0); CALCIUM 9.5 MG/DL (8.5-10.1); CREATININE SERUM 0.69 MG/DL (0.60-1.30); MAGNESIUM 2.2 MG/DL (1.6-2.4); TOTAL PROTEIN 7.3 GM/DL (6.4-8.2)
[2021-09-13 23:40] VITALS: BP 132/66
== END 2021-09-13 23:41 | disposition home or self-care (01) ==
LOC: EDUNIT# 22:20 → ER FS 22:21
DX: I10 Essential (primary) hypertension (principal); E66.9 Obesity, unspecified; Z68.41 Body mass index [BMI] 40.0-44.9, adult
CPT/HCPCS: 36415; 70450; 72125; 80053; 81000; 83735; 85025; 85610; 85730; 93041